=== PATIENT | female | born 1945 | race Caucasian/White ===

== ENCOUNTER → 2016-11-17 | Day surgery (SDC) | payer MEDICARE, OTHER ==
[~2016-11-17] MED LIST: ACETAMINOPHEN/HYDROcodone 325 MG/5 MG TAB ONE; BUPIVACAINE/EPINEPHRINE 0.5% 50 ML VIAL ONE; ESTR1TAB PO; LACTATED RINGER'S 1000 ML INJ 1,000 ML ONE; MIDAZOLAM HCL 2 MG/2 ML VIAL ONE; MORPHINE SULFATE 4 MG/ML INJ ONE; ONDANSETRON HCL 4 MG/2 ML VIAL IV PUSH ONE; PROPOFOL 200 MG/20 ML AMP IV ONE; ceFAZolin INJ 1,000 MG VIAL ONE
--- NOTE | 2016-11-18 05:50 | MP ---
cc: JASON LEZAMA M.D. DATE OF SURGERY 11/17/2016 PREOPERATIVE DIAGNOSIS Right knee medial meniscus tear. POSTOPERATIVE DIAGNOSIS Right knee medial meniscus tear. PROCEDURE Right knee arthroscopic partial medial meniscectomy. SURGEON Dr. Jason Lezama ANESTHESIA General. ESTIMATED BLOOD LOSS Less than 10 cc. TOURNIQUET TIME 0 minutes. COMPLICATIONS None. JUSTIFICATION The patient is a 71-year female with progressive symptoms of right knee pain. She has failed conservative treatment. Clinical exam as well as MRI confirmed the above-named findings. The patient was counseled as to the risks, benefits and alternatives of the above-named proposed surgical procedure. She did wish to proceed with surgery. PROCEDURE IN DETAIL Written consent was obtained. The patient was identified, taken to the operating room suite. The patient was placed supine on the operating room table. General anesthesia was administered as well as 1 gram of IV Ancef. The right leg was carefully placed in a well-padded leg cote, the right lower extremity was prepped and draped using isopropyl alcohol, Hibiclens solution and DuraPrep solution. After time-out was performed, medial and lateral parapatellar arthroscopic portals were established and the patellofemoral joint revealed minimal chondromalacia of the medial compartment. There was a complex tear of the posterior horn of the medial meniscus. An arthroscopic biter followed by arthroscopic shaver was introduced into the medial compartment to perform partial medial meniscectomy. The meniscal rim was probed and there was evidence of grade 2 chondromalacia of the medial femoral condyle and a gentle chondroplasty was performed along this region. The intercondylar notch revealed the anterior and posterior cruciate ligaments to be intact. The lateral compartment was relatively free of meniscal pathology or chondromalacia. At the conclusion of the surgical procedure, 30 cc of 0.5% Marcaine with epinephrine was injected into the knee joint. The arthroscopic portals were closed with 3-0 Prolene suture. Sterile dressings were applied. The patient tolerated the procedure well, no intraoperative complications noted. Jason Lezama MD JWCheryl/CHANDNI /2:31 PM /5:39 AM
== END | disposition home or self-care (01) ==
LOC: ESDC 12:40
PROVIDERS: ATTEND Orthopaedic Surgery Sports Medicine
DX: S83.231A Complex tear of medial meniscus, current injury, right knee, initial encounter (principal)
CPT/HCPCS: 01400; 29881; J0690; J2250; J2270; J2405; J3010; J7120

== ENCOUNTER → 2017-04-05 | Outpatient (CLI) | payer MEDICARE, OTHER ==
[~2017-04-05] MED LIST changes: -ACETAMINOPHEN/HYDROcodone 325 MG/5 MG TAB ONE; -BUPIVACAINE/EPINEPHRINE 0.5% 50 ML VIAL ONE; -LACTATED RINGER'S 1000 ML INJ 1,000 ML ONE; -MIDAZOLAM HCL 2 MG/2 ML VIAL ONE; -MORPHINE SULFATE 4 MG/ML INJ ONE; -ONDANSETRON HCL 4 MG/2 ML VIAL IV PUSH ONE; -PROPOFOL 200 MG/20 ML AMP IV ONE; -ceFAZolin INJ 1,000 MG VIAL ONE
--- NOTE | 2017-04-11 10:52 | RSPPFT ---
DATE OF PROCEDURE: 04/05/17 COMMENTS: Spirometry demonstrates an FEV1 of 2.0 at 91% of predicted, FVC of 2.7 at 95%, FEF 25-75 is 69% of predicted. Post-bronchodilator study demonstrated mild improvements in the FEF 25-75. Lung volumes demonstrated a raised RV/TLC ratio indicating hyperinflation with air trapping. Diffusion capacity is moderately reduced. Flow volume loops are suggestive of an obstructive pattern. IMPRESSION: 1. 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 2. Significant response to use of bronchodilator indicating some reversibility. 3. Hyperinflation and air trapping is present. 4. Moderate loss in diffusion capacity.
== END ==
LOC: PHRSP 08:22
PROVIDERS: ATTEND Internal Medicine Cardiovascular Disease
DX: R06.02 Shortness of breath (principal)
CPT/HCPCS: 94060; 94726; 94729